=== PATIENT | male | born 2000 | race Caucasian/White ===

== ENCOUNTER 2019-07-03 15:22 | Emergency (ER) | payer MEDICAID, MEDICARE ==
[~2019-07-03] VITALS: Ht 172.7 cm; Wt 90.0 kg
[2019-07-03 15:53] VITALS: BP 117/54
--- NOTE | 2019-07-03 18:51 | NUR ---
Pt arrived in overflow, states "Im here because I was told theyre going to help me find a place to live."
[2019-07-03 19:13] LABS: BASOPHILS % (AUTO) 0.6 % (0-1); EOSINOPHILS # (AUTO) 0.1 X10'3 (0-0.9); EOSINOPHILS % (AUTO) 1.4 % (0-6); HEMATOCRIT 47.8 % (42.0-52.0); HEMOGLOBIN 16.4 g/dl (14.0-17.9); LYMPHOCYTES # (AUTO) 2.2 X10'3 (1.1-4.8); LYMPHOCYTES % (AUTO) 29.6 % (21-51); MEAN CORPUSCULAR HEMOGLOBIN 28.6 PG (27.0-31.0); MEAN CORPUSCULAR HGB CONC 34.3 g/dL (33.0-36.5); MEAN CORPUSCULAR VOLUME 83.3 FL (78-98); MEAN PLATELET VOLUME 7.5 FL (7.4-10.4); MONOCYTES # (AUTO) 0.5 X10'3 (0-0.9); MONOCYTES % (AUTO) 6.8 % (2-12); NEUTROPHILS # (AUTO) 4.5 X10'3 (1.8-7.7); NEUTROPHILS % (AUTO) 61.6 % (42-75); PLATELET COUNT 208 X10'3 (140-440); RED BLOOD COUNT 5.73 X10'6 (4.70-6.10); RED CELL DISTRIBUTION WIDTH 13.9 % (11.5-14.5); WHITE BLOOD COUNT 7.4 X10'3 (4.5-11.0)
[2019-07-03 19:27] LABS: ALANINE AMINOTRANSFERASE 287 U/L (12-78); ALBUMIN 4.1 G/DL (3.4-5.0); ALBUMIN/GLOBULIN RATIO 1.2 (1.1-1.5); ALKALINE PHOSPHATASE 88 IU/L (46-116); ANION GAP 10 (8-16); ASPARTATE AMINO TRANSFERASE 954 U/L (10-37); BILIRUBIN,TOTAL 0.6 MG/DL (0.1-1.0); BLOOD UREA NITROGEN 17 MG/DL (7-18); BUN/CREATININE RATIO 19.8 (5.4-32.0); CALCIUM 9.4 MG/DL (8.5-10.1); CHLORIDE 104 MMOL/L (99-107); CREATININE 0.86 MG/DL (0.60-1.10); ETHANOL < 0.010 GM/DL (0.0-0.010); GLUCOSE 91 MG/DL (70-104); SODIUM 144 MMOL/L (135-145); TOTAL CARBON DIOXIDE 29.7 MMOL/L (24-32); TOTAL PROTEIN 7.4 G/DL (6.4-8.2); eGFR > 90 ML/MIN
[2019-07-03 19:50] LABS: ACETAMINOPHEN < 2.0 UG/ML (10-30)
[2019-07-03 22:36] LABS: CLARITY,URINE CLEAR (Clear); COLOR,URINE YELLOW (Yellow); GLUCOSE, URINE NEGATIVE (Neg); KETONES,URINE NEGATIVE (Neg); LEUKOCYTE ESTERASE ,URINE NEGATIVE (Neg); NITRITES, URINE NEGATIVE (Neg); OCCULT BLOOD,URINE NEGATIVE (Neg); PROTEIN,URINE NEGATIVE (Neg)
[2019-07-03 22:40] LABS: UA COLLECTION TYPE CLN CATCH MIDSTREAM; URINE AMPHETAMINE SCREEN NEGATIVE (Neg); URINE BARBITUATE SCREEN NEGATIVE (Neg); URINE BENZODIAZEPINES SCREEN NEGATIVE (Neg); URINE CANNABINOID SCREEN POSITIVE (Neg); URINE COCAINE SCREEN NEGATIVE (Neg); URINE METHADONE SCREEN NEGATIVE (Neg); URINE OPIATE SCREEN NEGATIVE (Neg); URINE PHENCYCLIDINE SCREEN NEGATIVE (Neg)
--- NOTE | 2019-07-03 23:49 | NUR ---
PT WAS LAYING ON HIS RIGHT SIDE SLEEPING RR EVEN AND UNLABORED
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
--- NOTE | 2019-07-04 01:42 | NUR ---
PT IS LAYING ON HIS RIGHT SIDE RESTING. HE IS AWAKE. 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 PT STATES HE WAS LIVING IN [place] AND HIS BROTHER PICKED HIM UP AND TOOK HIM TO [place] WHERE HIS BROTHER LIVES, THEN BROUGHT HIM TO [place] TODAY BECAUSE "[place] IS WHERE I LIKE TO LIVE." PT STATES HE IS FROM THE AREA HE ATTENDED HIGH SCHOOL AT [employer] IN [place]. PT STATES HE HAS A COUSIN THAT LIVES IN [place] BUT HE IS CURRENTLY IN [place]. HE EXPECTS HIS BROTHER WILL LEAVE HIM HERE AND RETURN TO [place].
--- NOTE | 2019-07-04 04:12 | NUR ---
Pt woke up and states he is "angry because people are pissing me off". Pt states "I thought you were going to help me with my kidney, Im supposed to get another bed." Pt became increasingly agitated, explained to pt that we are waiting for a bed for him to move to, and within a matter of seconds he became very pleasant and smiling. Pt was moved to bed 24 in EDOF.
--- NOTE | 2019-07-04 05:28 | NUR ---
pt is sleeping on his left side rr even and unlabored.
--- NOTE | 2019-07-04 07:40 | NUR ---
PT SIGNED MEDICAL RELEASE OF INFO FORM TO OBTAIN RECORDS FROM [facility] IN [place]
--- NOTE | 2019-07-04 07:52 | NUR ---
FAXED REQUEST FOR MEDICAL RECORDS TO [facility]# [phone]
--- NOTE | 2019-07-04 08:57 | NUR ---
PT IS SLEEPING, RESPIRATIONS SPONTENOUS, EVEN AND UNLABORED, NO S/S OF DISTRESS, DISCOMFORT OR AGITATION, PT IN LINE OF SITE OF NURSES STATION.
--- NOTE | 2019-07-04 10:22 | NUR ---
WINDOWS ADMIN PAGED
--- NOTE | 2019-07-04 10:42 | NUR ---
JAMEL HEAT AND FROST INSULATOR HELPER AT BEDSIDE TO GIVE HOUSING AND LOCAL RESOURCES.
--- NOTE | 2019-07-04 13:08 | NUR ---
PT IS LYING DOWN ON HIS LEFT SIDE WITH EYES CLOSED, RESPIRATIONS SPONTENOUS, EVEN AND UNLABORED, NO S/S OF DISTRESS, DISCOMFORT OR AGITATION, PT IN LINE OF SITE OF NURSES STATION.
--- NOTE | 2019-07-04 13:25 | NUR ---
PT UP EATING LUNCH. HE STATED IF THE DOCTOR COMING SOON. PT WANTS TO LEAVE
== END 2019-07-04 15:02 | disposition home or self-care (01) ==
LOC: ER 15:22
DX: K75.9 Inflammatory liver disease, unspecified (principal); Z59.0 Homelessness
CPT/HCPCS: 36415; 80053; 80178; 80305; 80320; 80329; 81003; 85025; 99283

== ENCOUNTER 2019-11-20 17:39 | Emergency (ER) | payer MEDICARE, MEDICAID ==
[~2019-11-20] VITALS: Ht 172.7 cm; Wt 81.8 kg
--- NOTE | 2019-11-20 18:09 | NUR ---
PT IS CALM AND COOPERATIVE.
--- NOTE | 2019-11-20 18:12 | NUR ---
PT GIVEN A SMALL SNACK.
[2019-11-20] MEDS ORDERED: OLANZapine 5mg rapidly disint. tablet PO ONE (18:30)
--- NOTE | 2019-11-20 18:40 | NUR ---
ASSUMED CARE FROM ARANZA CRANE. DR. HANEY JUST AT BEDSIDE TO SEE PT. PT APPEARS CALM AND COOPERATIVE. WHEN TOLD WE NEEDED A BLOOD DRAW HE STATED NO, "MY BLOOD IS FINE...IM HEALTHY". I EXPLAINED REASON FOR NEED AND THAT HE IS NOT ABLE TO REFUSE. HE THEN AGREED. JUST HAD LABS DRAWN AND PROVIDED URINE SAMPLE. AMBULATING WITH STEADY GAIT. JUST GIVEN DINNER TRAY. HAS ALREADY EATEN SOME BRIGITTE CRACKERS AND DRANK A MILK. NOW SITTING AT EDGE OF BED AND EATING HIS DINNER.
[2019-11-20 18:52] LABS: BASOPHILS % (AUTO) 0.6 % (0-1); EOSINOPHILS # (AUTO) 0.1 X10'3 (0-0.9); EOSINOPHILS % (AUTO) 0.9 % (0-6); HEMATOCRIT 46.1 % (42.0-52.0); HEMOGLOBIN 15.4 g/dl (14.0-17.9); LYMPHOCYTES # (AUTO) 1.6 X10'3 (1.1-4.8); LYMPHOCYTES % (AUTO) 20.6 % (21-51); MEAN CORPUSCULAR HEMOGLOBIN 28.8 PG (27.0-31.0); MEAN CORPUSCULAR HGB CONC 33.3 g/dL (33.0-36.5); MEAN CORPUSCULAR VOLUME 86.4 FL (78-98); MEAN PLATELET VOLUME 7.7 FL (7.4-10.4); MONOCYTES # (AUTO) 0.5 X10'3 (0-0.9); MONOCYTES % (AUTO) 6.1 % (2-12); NEUTROPHILS # (AUTO) 5.6 X10'3 (1.8-7.7); NEUTROPHILS % (AUTO) 71.8 % (42-75); PLATELET COUNT 231 X10'3 (140-440); RED BLOOD COUNT 5.34 X10'6 (4.70-6.10); RED CELL DISTRIBUTION WIDTH 13.3 % (11.5-14.5); WHITE BLOOD COUNT 7.9 X10'3 (4.5-11.0)
[2019-11-20 19:01] LABS: ANION GAP 9 (8-16); BILIRUBIN,TOTAL 0.5 MG/DL (0.1-1.0); BLOOD UREA NITROGEN 12 MG/DL (7-18); BUN/CREATININE RATIO 11.7 (5.4-32.0); CHLORIDE 105 MMOL/L (99-107); CREATININE 1.03 MG/DL (0.60-1.10); GLUCOSE 109 MG/DL (70-104); SODIUM 141 MMOL/L (135-145); TOTAL CARBON DIOXIDE 27.4 MMOL/L (24-32); eGFR > 90 ML/MIN
[2019-11-20 19:02] LABS: ALANINE AMINOTRANSFERASE 43 U/L (12-78); ALBUMIN 3.8 G/DL (3.4-5.0); ALBUMIN/GLOBULIN RATIO 1.1 (1.1-1.5); ALKALINE PHOSPHATASE 89 IU/L (46-116); ASPARTATE AMINO TRANSFERASE 27 U/L (10-37); TOTAL PROTEIN 7.3 G/DL (6.4-8.2)
[2019-11-20 19:04] LABS: URINE AMPHETAMINE SCREEN NEGATIVE (Neg); URINE BARBITUATE SCREEN NEGATIVE (Neg); URINE BENZODIAZEPINES SCREEN NEGATIVE (Neg); URINE CANNABINOID SCREEN NEGATIVE (Neg); URINE COCAINE SCREEN NEGATIVE (Neg); URINE METHADONE SCREEN NEGATIVE (Neg); URINE OPIATE SCREEN NEGATIVE (Neg); URINE PHENCYCLIDINE SCREEN NEGATIVE (Neg)
[2019-11-20 19:05] LABS: ETHANOL < 0.010 GM/DL (0.0-0.010)
--- NOTE | 2019-11-20 19:28 | NUR ---
GIVEN OLANZAPINE 10 MG. PT ATE ALL OF HIS DINNER AND REQUESTED MORE.
--- NOTE | 2019-11-20 20:50 | NUR ---
PT APPEARS TO BE SLEEPING, LYING ON HIS LEFT SIDE WITH BLANKETS COVERING TO HIS SHOUDERS. RR 14 AND UNLABORED. RN WITHIN VIEW OF PT AAT.
--- NOTE | 2019-11-20 20:54 | NUR ---
[facility] JUST CALLING ABOUT PT. DONKEY ENGINE FIRER/FIREMAN FAXING PACKET NOW.
--- NOTE | 2019-11-20 20:56 | NUR ---
PACKET FAXED TO [facility]
--- NOTE | 2019-11-20 21:08 | NUR ---
PT SLEEPING ON HIS LEFT SIDE IN BED. RESP EVEN AND UNLOBERED. PT IS IN THE DIRECT LINE OF SIGHT OF NURSING STAFF AND IS CORPORATIVE.
--- NOTE | 2019-11-20 21:31 | NUR ---
RECEIVED A FAX FROM [facility] "CRISIS EVALUATION" THIS WAS WRITTEN AT 6234 TODAY AND THEY SENT HIM TO [facility] ER FOR MEDICAL CLEARANCE. IT STATES" CURRENTLY HOMELESS, WAS ASKED TO LEAVE HIS BOARD AND SNF IN [place] AND HAS NO REALISTIC PLAN FOR SELF CARE...REPORTS SEEING DEMONS WITH COMMAND HALLUCINATIONS...REPORTS HE DOES NTO FEEL SAF EAND REPROTS HE IS WILLING TO GO THE THE HOSPITAL TO GET HELP". HIS HALF BROTHER DROVE HIM TO [place] FROM [place]. PT IS A CURRENT RESIDENT OF [facility]. 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
[2019-11-20] MEDS ORDERED: ARIP300S3 IM (21:39)
--- NOTE | 2019-11-20 22:00 | NUR ---
DR. HANEY SHOWN THE MED REC AND UPDATED THAT THE INFO IS BASED ON VAGUE PT INFORMATION AND NOTES FROM [facility] DOCUMENT THAT PT IS OVERDUE FOR HIS ABILIFY INJECTION. UNABLE TO CLARIFY WHEN LAST GIVEN AND WHAT THE PERSCRIBED DOES IS. MD REQUEST TO ATTEMPT TO VERIFY THIS INFO TOMORROW, POSSIBLY WITH PHARMACY'S HELP, SHE WILL NOT TRY TO RESTART THIS MED AT THIS TIME.
--- NOTE | 2019-11-20 22:44 | NUR ---
PT ROLLED OVER FROM LEFT TO RIGHTSIDE. BLANKETS COVERING TO HIS WAIST. RR 14 AND UNLABORED. RN WITHIN VIEW OF PT AAT.
--- NOTE | 2019-11-21 01:59 | NUR ---
PT NOW LYING ON HIS LEFT SIDE. RR 12 AND UNLABORED. SITTER WITHIN VIEW AAT.
--- NOTE | 2019-11-21 02:33 | NUR ---
PT AWAKE AND REQUESTING FOOD. GIVEN SNACKS AND JUICE.
--- NOTE | 2019-11-21 04:07 | NUR ---
PT REMAINS ASLEEP, LYING ON HIS BACK WITH BLANKETS COVERING TO HIS CHEST. RN WITHIN VIEW OF PT AAT.
[2019-11-21 05:48] VITALS: BP 101/55
--- NOTE | 2019-11-21 05:48 | NUR ---
PT AWAKENED TO TAKE VS. HR 51, OTHERWISE VSS. DENIES ANY NEEDS AT THIS TIME.
--- NOTE | 2019-11-21 10:09 | NUR ---
PT EYES CLOSED, LYING ON BACK, CHEST RISING AND FALLING, APPEARS TO BE SLEEPING
--- NOTE | 2019-11-21 10:24 | NUR ---
REC'D CALL FROM ARANZA DENG AT [facility] FOR A RN TO RN CALL, PROVIDED ANSWERS. SHE ALSO FAXED A COVID-19 SCREEN FORM, ASKED US TO FILL IT OUT AND FAX BACK.
--- NOTE | 2019-11-21 10:49 | NUR ---
PT SLEPT THROUGH BREAKFAST, NOW REQUESTING SNACKS.
--- NOTE | 2019-11-21 10:55 | NUR ---
SNACKS PROVIDED, ATTEMPTED TO CALL BROTHER, NO ANSWER, LEFT MESSAGE.
--- NOTE | 2019-11-21 11:14 | NUR ---
FAXED COVID SCREENING FORM TO [facility] AND PROVIDED PT WITH WARM BLANKET
--- NOTE | 2019-11-21 12:10 | NUR ---
REC'D CALL FROM FLACO AT [facility], PT HAS BEEN ACCEPTED TO [facility] @ 1200. THEY CAN TAKE PT AFTER 1800. FLACO WILL CALL BACK WITH A MANTEL CRAFTSMAN TIME.
--- NOTE | 2019-11-21 12:26 | NUR ---
PT CALM AND COOPERATIVE, AWAITING LUNCH
--- NOTE | 2019-11-21 12:28 | NUR ---
GENETICS NURSE TIME WILL BE [id number]
--- NOTE | 2019-11-21 13:30 | NUR ---
SITTING ON SIDE OF BED COLORING
--- NOTE | 2019-11-21 13:53 | NUR ---
PT WENT INTO BATHROOM TO BRUSH TEETH.
[2019-11-21] MEDS ORDERED: LORazepam 1 MG tablet PO ONE (16:10)
--- NOTE | 2019-11-21 16:24 | NUR ---
PT BECOMING AGITATED, WANTS TO LEAVE. ASKED IF HE COULD CALL HIS COUSIN, HAD A SHORT CONVERSATION. AFTER PHONE CALL WALKED AROUND FLOOR WITH PT 3 LAPS. WALKED PT BACK TO BED, HE THEN DID SOME YOGA AND I ADVISED HIM TO TAKE SOME DEEP BREATHS. SEEMED TO HELP THE AGITATION.
--- NOTE | 2019-11-21 16:44 | NUR ---
WALKED 3 MORE LAPS AROUND FLOOR WITH PT
== END 2019-11-21 17:41 ==
LOC: ER 17:40
DX: F20.9 Schizophrenia, unspecified (principal); Z59.0 Homelessness; Z86.19 Personal history of other infectious and parasitic diseases
CPT/HCPCS: 36415; 80053; 80305; 80320; 85025; 99285

== ENCOUNTER 2019-12-01 02:59 | Emergency (ER) | payer MEDICARE, MEDICAID ==
[~2019-12-01] VITALS: Ht 172.7 cm; Wt 83.6 kg
[~2019-12-01 02:59] MED LIST: ARIP300S3 IM
[2019-12-01 03:03] VITALS: BP 135/82
== END 2019-12-01 03:21 | disposition home or self-care (01) ==
LOC: ER 03:00
DX: R68.83 Chills (without fever) (principal); F20.9 Schizophrenia, unspecified; Z00.00 Encounter for general adult medical examination without abnormal findings; Z86.19 Personal history of other infectious and parasitic diseases; Z59.0 Homelessness
CPT/HCPCS: 99281

== ENCOUNTER 2019-12-03 01:36 | Emergency (ER) | payer MEDICARE, MEDICAID ==
[~2019-12-03] VITALS: Ht 172.7 cm; Wt 83.6 kg
[2019-12-03 02:12] LABS: BASOPHILS # (AUTO) 0.1 X10'3 (0-0.2); BASOPHILS % (AUTO) 0.5 % (0-1); EOSINOPHILS # (AUTO) 0.1 X10'3 (0-0.9); EOSINOPHILS % (AUTO) 0.6 % (0-6); HEMATOCRIT 46.4 % (42.0-52.0); HEMOGLOBIN 15.6 g/dl (14.0-17.9); LYMPHOCYTES # (AUTO) 2.4 X10'3 (1.1-4.8); LYMPHOCYTES % (AUTO) 20.3 % (21-51); MEAN CORPUSCULAR HEMOGLOBIN 28.6 PG (27.0-31.0); MEAN CORPUSCULAR HGB CONC 33.7 g/dL (33.0-36.5); MEAN CORPUSCULAR VOLUME 84.9 FL (78-98); MEAN PLATELET VOLUME 7.3 FL (7.4-10.4); MONOCYTES # (AUTO) 0.6 X10'3 (0-0.9); NEUTROPHILS # (AUTO) 8.5 X10'3 (1.8-7.7); NEUTROPHILS % (AUTO) 73.6 % (42-75); PLATELET COUNT 223 X10'3 (140-440); RED BLOOD COUNT 5.46 X10'6 (4.70-6.10); RED CELL DISTRIBUTION WIDTH 13.3 % (11.5-14.5); WHITE BLOOD COUNT 11.6 X10'3 (4.5-11.0)
[2019-12-03 02:23] LABS: URINE AMPHETAMINE SCREEN NEGATIVE (Neg); URINE BARBITUATE SCREEN NEGATIVE (Neg); URINE BENZODIAZEPINES SCREEN NEGATIVE (Neg); URINE CANNABINOID SCREEN NEGATIVE (Neg); URINE COCAINE SCREEN NEGATIVE (Neg); URINE METHADONE SCREEN NEGATIVE (Neg); URINE OPIATE SCREEN NEGATIVE (Neg); URINE PHENCYCLIDINE SCREEN NEGATIVE (Neg)
[2019-12-03 02:27] LABS: ALANINE AMINOTRANSFERASE 43 U/L (12-78); ALBUMIN 4.4 G/DL (3.4-5.0); ALBUMIN/GLOBULIN RATIO 1.4 (1.1-1.5); ALKALINE PHOSPHATASE 91 IU/L (46-116); ANION GAP 8 (8-16); ASPARTATE AMINO TRANSFERASE 31 U/L (10-37); BILIRUBIN,TOTAL 0.9 MG/DL (0.1-1.0); BLOOD UREA NITROGEN 20 MG/DL (7-18); BUN/CREATININE RATIO 18.2 (5.4-32.0); CALCIUM 9.3 MG/DL (8.5-10.1); CHLORIDE 105 MMOL/L (99-107); ETHANOL < 0.010 GM/DL (0.0-0.010); GLUCOSE 94 MG/DL (70-104); POTASSIUM 3.9 MMOL/L (3.5-5.1); SODIUM 141 MMOL/L (135-145); TOTAL CARBON DIOXIDE 27.9 MMOL/L (24-32); TOTAL PROTEIN 7.6 G/DL (6.4-8.2); eGFR 85 ML/MIN
--- NOTE | 2019-12-03 06:36 | NUR ---
Nursing Note: Pt laying in bed with his Addendum: 12/03/19 at 0637 by TRE Amend: Pt laying in bed with his eyes closed, RR even and unlabored, no S&S of distress, will continue to monitor.
--- NOTE | 2019-12-03 07:35 | NUR ---
Nursing Note: Pt laying in bed, eyes closed, no S&S of distress, RR even and unlabored, will continue to monitor.
--- NOTE | 2019-12-03 08:43 | NUR ---
Nursing Note: [facility] environmental marketing representative evaluating pt. No S&S of distress, will continue to monitor.
--- NOTE | 2019-12-03 09:30 | NUR ---
Nursing Note: Pt transferred to ED overflow bed #24. Pt calm and cooperative, no S&S of distress, will continue to monitor.
--- NOTE | 2019-12-03 10:27 | NUR ---
Nursing Note: [facility] states that the patient's brother will be arriving between 1-2 PM today to pickle pumper the patient and return to [place]. Pt laying in bed on L side, no S&S of distress, RR even and unlabored, will continue to monitor.
--- NOTE | 2019-12-03 11:25 | NUR ---
Nursing Note: Pt laying in bed on his back, RR even and unlabored, appears asleep, no S&S of distress, will continue to monitor.
--- NOTE | 2019-12-03 12:32 | NUR ---
Nursing Note: Per Dr. Delacruz's directions, pt soaking his feet in water with hydrogen peroxide. Pt tolerating well. No S&S of distress, will continue to monitor.
--- NOTE | 2019-12-03 13:06 | NUR ---
Discharge Note: Pt discharged at 1304 to go with brother via private vehicle. Escorted out by enterprise security architect. Pt denied suicidal ideation and indicated he does not want to harm himself at this time. Discharge instructions and education provided. Pt given opportunity to ask questions. Reviewed suicide prevention materials provided and pt verbalized understanding of resources available to him if he again feels suicidal. Directed pt seek Addendum: 12/03/19 at 1313 by TRE Amend: Directed pt to seek immediate care if he feels at risk for suicide. Pt indicated he had all possessions, he threw away a damaged shirt and took the rest of his belongings with him.
[2019-12-03 13:23] VITALS: BP 102/54
== END 2019-12-03 13:04 | disposition home or self-care (01) ==
LOC: ER 01:37
DX: R45.851 Suicidal ideations (principal); F20.9 Schizophrenia, unspecified; R68.83 Chills (without fever); Z86.19 Personal history of other infectious and parasitic diseases; Z59.0 Homelessness
CPT/HCPCS: 36415; 80053; 80305; 80320; 85025; 99285

== ENCOUNTER 2021-06-26 22:18 | Emergency (ER) | payer MEDICARE, MEDICAID ==
[2021-06-27] MEDS ORDERED: LIT300C PO (01:33)
[2021-06-27] MEDS ORDERED: OLANZapine 5mg rapidly disint. tablet PO ONE (01:35)
--- NOTE | 2021-06-27 01:41 | NUR ---
Bert barber in [place] - 06/27/21 at 0142 by NIKKO pauly downey tele consult @ 01:42
--- NOTE | 2021-06-27 01:42 | NUR ---
called brother to picker operator pt @ 01:42
[2021-06-27 01:43] VITALS: BP 121/72
--- NOTE | 2021-06-27 01:54 | NUR ---
called [facility] cab to picker box operator pt ETA 30min
[2021-06-27] MEDS ORDERED: QUEtiapine 25mg tablet PO SCH ×2 (02:06→21:00)
== END 2021-06-27 02:16 | disposition home or self-care (01) ==
LOC: ER 22:18
DX: F23 Brief psychotic disorder (principal); F17.200 Nicotine dependence, unspecified, uncomplicated; Z76.0 Encounter for issue of repeat prescription; Z86.19 Personal history of other infectious and parasitic diseases; Z79.899 Other long term (current) drug therapy
CPT/HCPCS: 99281; 99283

== ENCOUNTER 2024-02-09 20:48 | Inpatient (IN) | payer MEDICARE, MEDICAID ==
[~2024-02-09] VITALS: Ht 172.7 cm; Wt 85.5 kg
[~2024-02-09 20:48] MED LIST changes: -ARIP300S3 IM; +OLAN15TA20 PO; +PROP10TA10 PO; +TRAZ-251 PO
[2024-02-09 21:42] LABS: BASOPHILS % (AUTO) 0.5 % (0-1); EOSINOPHILS # (AUTO) 0.2 X10'3 (0-0.9); EOSINOPHILS % (AUTO) 2.8 % (0-6); HEMATOCRIT 42.8 % (42.0-52.0); HEMOGLOBIN 14.7 g/dl (14.0-17.9); LYMPHOCYTES # (AUTO) 2.3 X10'3 (1.1-4.8); LYMPHOCYTES % (AUTO) 28.3 % (21-51); MEAN CORPUSCULAR HEMOGLOBIN 29.5 PG (27.0-31.0); MEAN CORPUSCULAR HGB CONC 34.4 g/dL (33.0-36.5); MEAN CORPUSCULAR VOLUME 85.6 FL (78-98); MEAN PLATELET VOLUME 7.6 FL (7.4-10.4); MONOCYTES # (AUTO) 0.8 X10'3 (0-0.9); MONOCYTES % (AUTO) 9.1 % (2-12); NEUTROPHILS # (AUTO) 4.9 X10'3 (1.8-7.7); NEUTROPHILS % (AUTO) 59.3 % (42-75); PLATELET COUNT 232 X10'3 (140-440); RED CELL DISTRIBUTION WIDTH 13.4 % (11.5-14.5); WHITE BLOOD COUNT 8.3 X10'3 (4.5-11.0)
[2024-02-09 21:57] LABS: ALANINE AMINOTRANSFERASE 113 U/L (12-78); ALBUMIN 3.7 G/DL (3.4-5.0); ALBUMIN/GLOBULIN RATIO 1.2 (1.1-1.5); ALKALINE PHOSPHATASE 97 IU/L (46-116); ANION GAP 8 (8-16); ASPARTATE AMINO TRANSFERASE 63 U/L (10-37); BILIRUBIN,TOTAL 0.8 MG/DL (0.1-1.0); BLOOD UREA NITROGEN 16 MG/DL (7-18); BUN/CREATININE RATIO 21.3 (10.0-20.0); CALCIUM 8.8 MG/DL (8.5-10.1); CHLORIDE 103 MMOL/L (99-107); CREATININE 0.75 MG/DL (0.60-1.10); GLUCOSE 92 MG/DL (70-104); POTASSIUM 3.1 MMOL/L (3.5-5.1); SODIUM 139 MMOL/L (135-145); TOTAL CARBON DIOXIDE 27.9 MMOL/L (24-32); TOTAL PROTEIN 6.9 G/DL (6.4-8.2); eCRCL 146 ML/MIN; eGFR > 90 ML/MIN
[2024-02-09 22:12] LABS: THYROID STIMULATING HORMONE < 0.01 ulU/ml (0.34-4.50)
[2024-02-09 22:58] LABS: BILIRUBIN,URINE NEGATIVE (Neg); CLARITY,URINE CLEAR (Clear); GLUCOSE, URINE NEGATIVE (Neg); KETONES,URINE NEGATIVE (Neg); LEUKOCYTE ESTERASE ,URINE NEGATIVE (Neg); NITRITES, URINE NEGATIVE (Neg); OCCULT BLOOD,URINE NEGATIVE (Neg); PROTEIN,URINE NEGATIVE (Neg); UROBILINOGEN,URINE 0.2 E.U/dL (0.2-1.0)
[2024-02-09 23:01] LABS: COLOR,URINE DARK YELLOW (Yellow); UA COLLECTION TYPE URINAL
[2024-02-09 23:11] LABS: URINE AMPHETAMINE SCREEN POSITIVE (Neg); URINE BARBITUATE SCREEN NEGATIVE (Neg); URINE BENZODIAZEPINES SCREEN NEGATIVE (Neg); URINE CANNABINOID SCREEN NEGATIVE (Neg); URINE COCAINE SCREEN NEGATIVE (Neg); URINE METHADONE SCREEN NEGATIVE (Neg); URINE OPIATE SCREEN NEGATIVE (Neg); URINE PHENCYCLIDINE SCREEN NEGATIVE (Neg)
[2024-02-09] MEDS ORDERED: PROP10TA10 PO (23:12)
[2024-02-09] MEDS ORDERED: OLAN5TAB5 PO (23:12)
[2024-02-09] MEDS ORDERED: TRAZ-251 PO (23:12)
[2024-02-10] MEDS: traZODone 50mg tablet PO PRN (00:43)
[2024-02-10] MEDS: potassium Cl 20 mEq SR tablet PO STA (00:44)
[2024-02-10] MEDS: OLANZapine 2.5MG tablet PO ONE (00:47)
[2024-02-10] MEDS: propranolol 10mg tablet PO SCH (09:02)
[2024-02-10] MEDS ORDERED: mag hydrox/Alum hydrox/simeth 30ml oral suspension PO PRN (14:00)
[2024-02-10] MEDS ORDERED: magnesium hydroxide 30ml (MOM) UD suspension PO PRN (14:00)
[2024-02-10] MEDS ORDERED: acetaminophen 325mg tablet PO PRN ×2 (14:00)
[2024-02-10] MEDS ORDERED: loperamide 2mg capsule PO PRN (14:00)
[2024-02-10 14:54] VITALS: BP 108/58; PULSE 93; RESP 16; TEMP 96.6; O2SAT 97
[2024-02-10] MEDS: NICOTINE POLACRILEX 2 MG LOZENGE BC PRN (15:00)
[2024-02-10 15:21] VITALS: RESP 16; O2SAT 97
[2024-02-10] MEDS ORDERED: pneumococcal 23-VAL P-sac vacc 25 mcg/0.5ml vial IMVAC ONE (15:45)
[2024-02-10] MEDS ORDERED: FLU VACC TS2024-25(6MOS UP)/PF 45 MCG/0.5 ML SYRINGE IMVAC ONE (18:30)
[2024-02-10 19:00] VITALS: RESP 16; O2SAT 100
[2024-02-10 20:00] VITALS: BP 117/57; PULSE 84; RESP 16; TEMP 98.7; O2SAT 100
[2024-02-10] MEDS: OLANZAPINE 5 MG TABLET PO SCH (21:44)
[2024-02-11 02:31] VITALS: RESP 16; O2SAT 100
[2024-02-11 07:11] LABS: HEMOGLOBIN A1C 4.9 % (4.5-6.2)
[2024-02-11 07:30] VITALS: BP 112/68; PULSE 71; RESP 18; TEMP 97.2; O2SAT 97
[2024-02-11] MEDS: nicotine 21mg patch - 24 hr TD SCH (09:31)
[2024-02-11 12:36] LABS: CHOLESTEROL 121 MG/DL (0-200); HDL CHOLESTEROL 40 MG/DL (35-60); LDL CHOLESTEROL 70 MG/DL (50-100); TRIGLYCERIDES 94 MG/DL (20-135)
[2024-02-11 12:38] LABS: THYROID STIMULATING HORMONE < 0.01 ulU/ml (0.34-4.50)
[2024-02-11 19:00] VITALS: RESP 18; O2SAT 98
[2024-02-11 20:00] VITALS: BP 125/58; PULSE 80; RESP 18; TEMP 97; O2SAT 98
[2024-02-11] MEDS: traZODone 50mg tablet PO SCH (21:30)
[2024-02-12 07:42] VITALS: BP 110/60; PULSE 68; RESP 14; TEMP 98.5; O2SAT 96
[2024-02-12 19:00] VITALS: RESP 16; O2SAT 98
[2024-02-12 20:00] VITALS: BP 109/65; PULSE 95; RESP 16; TEMP 98.8; O2SAT 98
[2024-02-13 07:52] VITALS: BP 107/48; PULSE 51; RESP 15; TEMP 98.2; O2SAT 97
[2024-02-13] MEDS ORDERED: hyDROXYzine 50 mg/ml injection ***IM only IM PRN (08:25)
[2024-02-13] MEDS ORDERED: hydrOXYzine 25 MG tablet PO PRN (09:20)
[2024-02-13 19:00] VITALS: BP 107/63; PULSE 94; RESP 16; TEMP 97.4; O2SAT 99
[2024-02-14 07:00] VITALS: RESP 19; O2SAT 98
[2024-02-14 08:00] VITALS: BP 89/64; PULSE 65; RESP 19; TEMP 96.1; O2SAT 98
[2024-02-14] MEDS ORDERED: TRAZ-251 PO (09:57)
[2024-02-14] MEDS ORDERED: OLAN5TAB75 PO (09:57)
== END 2024-02-14 15:15 | disposition home or self-care (01) | DRG 885 ==
LOC: ER 20:48 → ED HOLD 02-10 12:00 → UNDOADMIN 02-10 12:00 → ED HOLD 02-10 13:34 → ADULT MH 02-10 13:36 → ED HOLD 02-10 13:36
PROVIDERS: ADMIT Psychiatry & Neurology Psychiatry; ATTEND Psychiatry & Neurology Psychiatry
DX: F20.9 Schizophrenia, unspecified (principal); B19.20 Unspecified viral hepatitis C without hepatic coma; R45.851 Suicidal ideations; Z59.00 Homelessness unspecified; R44.3 Hallucinations, unspecified; E87.6 Hypokalemia; F31.9 Bipolar disorder, unspecified; F15.10 Other stimulant abuse, uncomplicated; F41.9 Anxiety disorder, unspecified; F90.9 Attention-deficit hyperactivity disorder, unspecified type; Z20.822 Contact with and (suspected) exposure to COVID-19; Z81.8 Family history of other mental and behavioral disorders
CPT/HCPCS: 36415; 80053; 80061; 80305; 81001; 81003; 83036; 84443; 85025; 87081; 87811; 90686; 90732; 99285; C2617

== ENCOUNTER 2024-02-21 12:26 | Emergency (ER) | payer MEDICARE, MEDICAID ==
[~2024-02-21] VITALS: Ht 172.7 cm; Wt 75.0 kg
[~2024-02-21 12:26] MED LIST changes: -OLAN15TA20 PO; +OLAN5TAB75 PO
[2024-02-21 12:34] VITALS: BP 130/72; PULSE 124; RESP 18; TEMP 97.8; O2SAT 97
[2024-02-21] MEDS ORDERED: SULF1TAB49 PO (15:07)
== END 2024-02-21 15:16 | disposition home or self-care (01) ==
LOC: ER 12:27
DX: L03.313 Cellulitis of chest wall (principal); F20.9 Schizophrenia, unspecified; Z79.899 Other long term (current) drug therapy; F15.90 Other stimulant use, unspecified, uncomplicated
CPT/HCPCS: 99283

== ENCOUNTER 2024-05-06 21:33 | Emergency (ER) | payer MEDICAID, MEDICARE ==
[~2024-05-06] VITALS: Ht 172.7 cm; Wt 77.0 kg
[~2024-05-06 21:33] MED LIST changes: +DIVA250T8 PO; +OLAN5TAB29 PO; -OLAN5TAB75 PO
[2024-05-06 21:37] VITALS: BP 111/73; PULSE 119; RESP 17; TEMP 98.8; O2SAT 99
== END 2024-05-06 23:45 | disposition home or self-care (01) ==
LOC: ER 21:34
DX: F23 Brief psychotic disorder (principal); F15.20 Other stimulant dependence, uncomplicated; F10.90 Alcohol use, unspecified, uncomplicated; Z79.899 Other long term (current) drug therapy; Z59.02 Unsheltered homelessness; Z60.2 Problems related to living alone; Y90.9 Presence of alcohol in blood, level not specified
CPT/HCPCS: 99281

== ENCOUNTER 2024-05-07 02:00 | Emergency (ER) | payer MEDICAID, MEDICARE ==
[~2024-05-07] VITALS: Ht 172.7 cm; Wt 77.0 kg
[2024-05-07 02:02] VITALS: BP 119/64; PULSE 113; RESP 18; TEMP 98.9; O2SAT 98
[2024-05-07] MEDS ORDERED: LORazepam 1 MG tablet PO ONE (07:45)
== END 2024-05-07 10:50 | disposition left against medical advice (07) ==
LOC: ER 02:00
DX: G47.00 Insomnia, unspecified (principal); F23 Brief psychotic disorder; F15.90 Other stimulant use, unspecified, uncomplicated; Z60.2 Problems related to living alone; Z59.00 Homelessness unspecified
CPT/HCPCS: 99281